=== PATIENT | female | born 1995 | race American Indian/Alaskan Native ===

== ENCOUNTER 2017-04-16 21:01 | Outpatient (CLI) | payer MEDICAID ==
[2017-04-16 21:29] VITALS: BP 110/57
== END 2017-04-16 23:12 | disposition home or self-care (01) ==
LOC: TRG 21:01
PROVIDERS: ATTEND Obstetrics & Gynecology
DX: O62.9 Abnormality of forces of labor, unspecified (principal); O42.92 Full-term premature rupture of membranes, unspecified as to length of time between rupture and onset of labor; Z3A.39 39 weeks gestation of pregnancy
CPT/HCPCS: 59025

== ENCOUNTER 2017-04-22 01:22 | Outpatient (CLI) | payer MEDICAID ==
[2017-04-22 01:34] VITALS: BP 123/63
== END 2017-04-22 02:23 | disposition home or self-care (01) ==
LOC: TRG 01:22
PROVIDERS: ATTEND Obstetrics & Gynecology
DX: O62.9 Abnormality of forces of labor, unspecified (principal); O48.0 Post-term pregnancy; Z3A.40 40 weeks gestation of pregnancy
CPT/HCPCS: 59025

== ENCOUNTER 2017-04-23 05:59 | Inpatient (IN) | payer MEDICAID ==
[2017-04-23] MEDS ORDERED: POLYCILLIN/NS 2 GM/100 ML 2 GM/100 ML BAG IV ONE (08:14)
[2017-04-23] MEDS ORDERED: BRETHINE SUB-Q PRN (08:14)
[2017-04-23] MEDS ORDERED: ZOFRAN IV PRN ×2 (08:14→18:37)
[2017-04-23] MEDS ORDERED: NARCAN 0.4 MG/1 ML IV PRN (08:14)
[2017-04-23] MEDS ORDERED: STADOL IV PRN (08:14)
[2017-04-23] MEDS ORDERED: SUBLIMAZE IV PRN (08:14)
[2017-04-23] MEDS ORDERED: ePHEDrine SULFATE IV PRN ×2 (08:14→09:55)
[2017-04-23] MEDS ORDERED: BRETHINE IVP PRN (08:14)
[2017-04-23] MEDS ORDERED: MINERAL OIL PO PRN (08:14)
[2017-04-23] MEDS ORDERED: XYLOCAINE 2% INFILTRATI ONE ×2 (08:14→19:19)
[2017-04-23] MEDS ORDERED: LACTATED RINGERS 1,000 ML IV ONE (08:30)
[2017-04-23 08:46] LABS: Hematocrit 33.3 % (30.3-42.9); Hemoglobin 11.3 gm/dl (10.1-14.3); Mean Corpuscular HGB Conc 34 % (30-34); Mean Corpuscular Hemoglobin 29 pg (28-32); Mean Corpuscular Volume 86 fl (79-97); Platelet Count 210 K/mm3 (140-440); Red Blood Count 3.89 M/mm3 (3.65-5.03); Red Cell Distribution Width 14.6 % (13.2-15.2); White Blood Count 9.3 K/mm3 (4.5-11.0)
[2017-04-23] MEDS ORDERED: Fluarix Quad 2017-2018(36 MOS+ IM ONE (08:56)
[2017-04-23] MEDS ORDERED: PITOCin/NS 20 UNIT/1000ML DRIP 20 UNITS/1,000 ML BAG IV SCH ×2 (09:00→18:37)
[2017-04-23] MEDS ORDERED: LACTATED RINGERS 1,000 ML IV SCH (09:00)
[2017-04-23] MEDS ORDERED: NARCAN 2 MG/2 ML IV PRN (09:55)
--- NOTE | 2017-04-23 09:55 | Anesthesia Consultation ---
Anesthesia Consult and Med Hx Date of service: 04/23/17 - Airway Anesthetic Teeth Evaluation: Good ROM Head & Neck: Adequate Mental/Hyoid Distance: Adequate Mallampati Class: Class II Intubation Access Assessment: Good - Pulmonary Exam CTA: Yes - Cardiac Exam Cardiac Exam: No Murmur - Pre-Operative Health Status ASA Pre-Surgery Classification: ASA2 Proposed Anesthetic Plan: Epidural - Pulmonary Hx Asthma: Yes (LAST ATTACK DURING CHILDHOOD; USE INHALER) COPD: No Hx Pneumonia: No - Cardiovascular System Hx Hypertension: No - Central Nervous System Hx Seizures: No Hx Psychiatric Problems: No - Endocrine Hx Renal Disease: No Hx End Stage Renal Disease: No Hx Hypothyroidism: No Hx Hyperthyroidism: No - Hematic Hx Anemia: No Hx Sickle Cell Disease: No - Other Systems Hx Alcohol Use: No
[2017-04-23] MEDS ORDERED: NS IV ONE (10:00)
[2017-04-23] MEDS ORDERED: FLAGYL IV ONE (10:00)
[2017-04-23] MEDS ORDERED: fentaNYL-BUPIV 2 MCG/ML-0.125% 200 MCG/100 ML BAG EPIDURAL SCH (10:00)
[2017-04-23] MEDS ORDERED: VIAFLEX EMPTY CONTAINER IV ONE (10:00)
[2017-04-23] MEDS ORDERED: POLYCILLIN/NS 1 GM/50 ML 1 GM/50 ML BAG IV SCH (12:16)
[2017-04-23] MEDS: PITOCin/NS 30 UNIT/500ML 30 UNITS/500 ML BAG IV SCH ×2 (14:32→15:04)
--- NOTE | 2017-04-23 15:09 | History and Physical Report ---
History of Present Illness Date of examination: 04/23/17 Date of admission: 04/23/17 08:19 Chief complaint: contractions History of present illness: Pt is a 21 year old -[place] female ALEJANDRA 04/20/17t 40w3d who presents with regular contractions with cervical change from 3 to 4.5 cm while in observation. Pt has had insufficient care since 21 weeks complicated by asthma, h/o 20 wk loss ([facility] reports that pt took an medication she bought online), gonorrhea treated with negative test of cure on 02/28/17, trichomonas treated with positive test of cure, no visits after 32 weeks, h/o incarceration this , IUGR at 8%ile with MFM comanagment. Pt has been non-compliant throughout the . She is GBS unknown because she did not present after 32 weeks. 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, trichomonas Family/Genetic History: none Social history: no significant social history - Obstetrical History Expected Date of Delivery: 04/20/17 Actual Gestation: 40 Week(s) 3 Day(s) : 3 Para: 1 Hx # Term Pregnancies: 1 Number of Pregnancies: 0 Spontaneous Abortions: 0 Induced : 1 Number of Living Children: 1 Medications and Allergies Allergies Allergy/AdvReac Type Severity Reaction Status Date / Time No Known Allergies Allergy Verified 04/23/17 08:22 Home Medications Medication Instructions Recorded Confirmed Last Taken Type No Known Home Medications [No 05/11/14 04/22/17 Unknown History Reported Home Medications] Active Meds: Active Medications Butorphanol Tartrate (Stadol) 2 mg IV Q2H PRN PRN Reason: Pain , Severe (7-10) Ephedrine Sulfate (Ephedrine Sulfate) 10 mg IV Q2M PRN PRN Reason: Hypotension Ephedrine Sulfate (Ephedrine Sulfate) 10 mg IV Q2M PRN PRN Reason: Hypotension Fentanyl (Sublimaze) 100 mcg IV Q2H PRN PRN Reason: Labor Pain Last Admin: 04/23/17 08:45 Dose: 100 mcg Ampicillin Sodium (Polycillin/Ns 1 Gm/50 Ml) 1 gm in 50 mls @ 100 mls/hr IV Q4HR MIKEY PRN Reason: Protocol Last Admin: 04/23/17 12:30 Dose: 100 mls/hr Lactated Ringer's (Lactated Ringers) 1,000 mls @ 125 mls/hr IV DIRECT MIKEY Last Admin: 04/23/17 10:36 Dose: 125 mls/hr Oxytocin/Sodium Chloride (Pitocin/Ns 20 Unit/1000ml Drip) 20 units in 1,000 mls @ 125 mls/hr IV DIRECT MIKEY Oxytocin/Sodium Chloride (Pitocin/Ns 30 Unit/500ml) 30 units in 500 mls @ 2 mls /hr IV TITR MIKEY PRN Reason: Protocol Last Admin: 04/23/17 14:32 Dose: 4 ml/hr, 4 mls/hr Fentanyl/Bupivacaine/Sodium Chlor (Fentanyl-Bupiv 2 Mcg/Ml-0.125%) 200 mcg in 100 mls @ 12 mls/hr EPIDURAL TITR MIKEY PRN Reason: Protocol Last Admin: 04/23/17 10:31 Dose: 12 mls/hr Mineral Oil (Mineral Oil) 30 ml PO QHS PRN PRN Reason: Constipation Naloxone HCl (Narcan 0.4 Mg/1 Ml) 0.1 mg IV Q2MIN PRN PRN Reason: Res Rate </= 8 or 02 SAT < 92% Naloxone HCl (Narcan 2 Mg/2 Ml) 0.2 mg IV Q5M PRN PRN Reason: Respiratory sedation Ondansetron HCl (Zofran) 4 mg IV Q8H PRN PRN Reason: Nausea And Vomiting Terbutaline Sulfate (Brethine) 0.25 mg SUB-Q ONCE PRN PRN Reason: Hyperstimulation/Hypertonicity Terbutaline Sulfate (Brethine) 0.25 mg IVP ONCE PRN PRN Reason: Hyperstimulation/Hypertonicity Review of Systems All systems: negative - Vital Signs Vital signs: Vital Signs Pulse BP 60 107/59 04/23/17 06:17 04/23/17 06:17 Temp Pulse Resp BP Pulse Ox 97.9 F 85 18 110/66 100 04/23/17 09:42 04/23/17 15:03 04/23/17 09:42 04/23/17 15:03 04/23/17 15:02 - Physical Exam Breasts: Positive: deferred Cardiovascular: Regular rate Lungs: Positive: Clear to auscultation Abdomen: Positive: soft ( gravid ) Genitourinary (Female): Positive: normal external genitalia Uterus: Positive: enlarged (gravid ) Extremities: Positive: normal - Obstetrical FHR: category 2 Uterine Contraction Monitor Mode: External Cervical Dilatation: 8 Cervical Effacement Percentage: 100 station: -1 Uterine Contraction Pattern: Irregular Uterine Tone Measurement Phase: Resting Uterine Contraction Intensity: Mild Results Result Diagrams: 04/23/17 08:30 All other labs normal. Assessment and Plan A: IUP at 40w3d Active labor IUGR Trichomonas with positive Insufficient care GBS unknown P: Admit to labor and delivery. GBS prophylaxis. Flagyl 2g IV. Routine intrapartum care.
--- NOTE | 2017-04-23 15:59 | Procedure Note ---
OB Delivery Note - Delivery Date of Delivery: 04/23/17 Surgeon: ROSA ELENA WILLSON Estimated blood loss: other (400 mL) - Vaginal Delivery presentation: vertex Delivery position: OA Intrapartum events: mult.variable deceleratio Delivery induction: none Delivery augmentation: rupture of membranes, pitocin Delivery monitor: external FHT, external uterine Route of delivery: Delivery placenta: spontaneous Episiotomy: none Delivery laceration: other (midline periurethral, right periurethral- hemostatic ) Delivery repair: vicryl Anesthesia: epidural - Infant A at 1 minute: 9 at 5 minutes: 9 Infant Gender: Female (2632g (5lb 13 oz) @ 1540 pm)
[2017-04-23] MEDS ORDERED: PHENERGAN PO PRN (18:37)
[2017-04-23] MEDS ORDERED: TUCKS PAD TP PRN (18:37)
[2017-04-23] MEDS ORDERED: MILK OF MAGNESIA PO PRN (18:37)
[2017-04-23] MEDS ORDERED: PHENERGAN PR PRN (18:37)
[2017-04-23] MEDS ORDERED: SODIUM CHLORIDE FLUSH SYRINGE 10 ML IV NR (18:37)
[2017-04-23] MEDS ORDERED: DULCOLAX PR PRN (18:37)
[2017-04-23] MEDS ORDERED: BENADRYL PO PRN (18:37)
[2017-04-23] MEDS ORDERED: TYLENOL PO PRN (18:37)
[2017-04-23] MEDS ORDERED: NORCO 5/325 PO PRN (18:37)
[2017-04-23] MEDS ORDERED: LANSINOH TP PRN (18:37)
[2017-04-23] MEDS ORDERED: PITOCin/NS 20 UNIT/1000ML DRIP 20,000 MILLIUNITS/1,000 ML BAG IV ONE (19:19)
[2017-04-23] MEDS: MOTRIN PO SCH (21:26)
[2017-04-23] MEDS ORDERED: FEOSOL PO SCH (22:00)
[2017-04-24 05:31] LABS: Hematocrit 30.1 % (30.3-42.9); Hemoglobin 10.1 gm/dl (10.1-14.3)
[2017-04-24] MEDS ORDERED: BOOSTRIX IM ONE (06:00)
[2017-04-24] MEDS: MOTRIN PO SCH ×3 (07:49→18:13)
[2017-04-24] MEDS ORDERED: MOTRIN PO PRN (09:11)
--- NOTE | 2017-04-24 10:50 | Progress Note ---
Assessment and Plan A: PPD#1 s/p at term P: Routine care. Discharge this evening if baby is able to go home today. If not , hold discharge until tomorrow. Subjective - Subjective Date of service: 04/24/17 Principal diagnosis: s/p at term, IUGR Interval history: No overnight events. Patient reports: appetite normal, voiding normally, pain well controlled, ambulating normally [place]: doing well Objective - Vital Signs Latest vital signs: Vital Signs Temp Pulse Resp Resp BP BP Pulse Ox 04/24/17 07:53 18 04/24/17 04:00 97.8 F 86 20 118/55 04/24/17 01:58 98.1 F 72 20 108/46 04/23/17 22:26 16 04/23/17 21:26 16 04/23/17 18:30 97.9 F 65 18 109/62 100 04/23/17 17:33 64 101/56 04/23/17 17:30 97.8 F 94 H 18 114/70 04/23/17 17:03 73 116/64 04/23/17 16:33 83 105/66 04/23/17 16:18 96 H 132/60 04/23/17 16:00 78 105/61 04/23/17 15:48 84 122/71 04/23/17 15:34 64 107/58 04/23/17 15:32 56 L 100 04/23/17 15:27 84 100 04/23/17 15:22 75 100 04/23/17 15:19 74 117/57 04/23/17 15:17 59 L 100 04/23/17 15:12 58 L 100 04/23/17 15:07 76 100 04/23/17 15:03 85 110/66 04/23/17 15:02 67 100 04/23/17 14:57 77 100 04/23/17 14:52 58 L 100 04/23/17 14:48 77 115/62 04/23/17 14:47 75 98 04/23/17 14:42 75 99 04/23/17 14:37 76 100 04/23/17 14:32 86 111/62 100 04/23/17 14:27 63 100 04/23/17 14:22 70 99 04/23/17 14:18 66 107/63 04/23/17 14:17 70 100 12/23/17 14:12 65 100 04/23/17 14:07 85 100 04/23/17 14:03 71 104/63 04/23/17 14:02 90 100 04/23/17 13:57 71 100 04/23/17 13:52 82 100 04/23/17 13:49 75 103/50 04/23/17 13:47 70 100 04/23/17 13:42 64 100 04/23/17 13:37 74 100 04/23/17 13:33 71 107/59 04/23/17 13:32 69 100 04/23/17 13:27 73 100 04/23/17 13:22 80 100 04/23/17 13:17 78 107/60 100 04/23/17 13:12 73 100 04/23/17 13:07 80 100 04/23/17 13:02 72 103/61 99 04/23/17 12:57 97 H 99 04/23/17 12:52 86 99 04/23/17 12:48 75 102/56 04/23/17 12:47 79 100 04/23/17 12:42 60 100 04/23/17 12:37 71 99 04/23/17 12:33 88 110/64 04/23/17 12:32 87 99 04/23/17 12:27 77 99 04/23/17 12:22 68 100 04/23/17 12:17 82 100 04/23/17 12:12 75 100 04/23/17 12:07 68 100 04/23/17 12:02 65 99 04/23/17 11:57 65 99 04/23/17 11:52 70 100 04/23/17 11:47 64 100 04/23/17 11:42 64 99 04/23/17 11:37 72 99 04/23/17 11:32 65 100 04/23/17 11:27 66 100 04/23/17 11:22 82 100 04/23/17 11:17 77 132/116 100 04/23/17 11:12 80 100 04/23/17 11:07 63 99 04/23/17 11:02 72 100 04/23/17 11:01 72 112/66 04/23/17 10:57 73 100 04/23/17 10:56 55 L 114/65 04/23/17 10:52 78 98 Intake and Output 04/23/17 04/24/17 04/24/17 22:59 06:59 14:59 Intake Total 242.133 240 120 Output Total 500 Balance -257.867 240 120 Intake: IV 2.133 PITOCin/NS 30 UNIT/500ML 2.133 30 units In 500 ml @ 2 mls/hr IV TITR MIKEY Rx#: [id number] Oral 240 240 120 Output: Urine 500 Uretheral ([place]) 500 Other: Total, Intake Amount 240 240 120 # Voids Void 1 1 1 Estimated Blood Loss 400 - Exam Breasts: Present: deferred Cardiovascular: Present: Regular rate Lungs: Present: Clear to auscultation Abdomen: Present: soft Uterus: Present: fundal height at umbilicus Extremities: Present: normal - Labs Labs: Abnormal lab results 04/24/17 Range/Units 05:18 Hct 30.1 L (30.3-42.9) %
--- NOTE | 2017-04-24 10:53 | Discharge Summary ---
Providers - Providers Date of Admission: 04/23/17 08:19 Date of discharge: 04/24/17 Attending physician: ROSA ELENA WILLSON 04/23/17 18:37 Consult to [employer] Consulting Services [CONS] Routine Reason For Exam: assistance with , SNS Primary care physician: ROSA ELENA WILLSON Hospitalization Reason for admission: active labor Delivery: Procedure details: Please see delivery note. Episiotomy: none Laceration: other (midline periurethral, right periurethral ) Other procedures: none complications: none Discharge diagnosis: IUP at term delivered baby: female Hospital course: Pt underwent which she tolerated well. Her course was uncomplicated and she met discharge criteria on PPD#1. She will follow up in 4 wks with Liset Queen. Condition at discharge: Stable Disposition: DC-01 TO HOME OR SELFCARE - Discharge Diagnoses (1) IUGR (intrauterine growth restriction) Status: Acute (2) Insufficient care Status: Acute Qualifiers: Trimester: third trimester Qualified Code(s): O09.33 - Supervision of with insufficient care, third trimester (3) Term of female Status: Acute Plan - Discharge Medications Prescriptions: Ibuprofen [Motrin 800 MG tab] 800 mg PO Q8HR PRN #30 tablet PRN Reason: Pain - Provider Discharge Summary Activity: routine, no sex for 6 weeks, no heavy lifting 4 weeks, no strenuous exercise Diet: routine Instructions: routine Additional instructions: [] Smoking cessation referral if applicable(refer to patient education folder for contact #) [] Refer to [facility]'s [facility] Booklet Call your doctor immediately for: * Fever > 100.5 * Heavy vaginal bleeding ( >1 pad per hour) * Severe persistent headache * Shortness of breath * Reddened, hot, painful area to leg or breast * Drainage or odor from incision. * Keep incision clean and dry at all times and follow doctor's instructions regarding bathing/showering - Follow up plan Follow up: LISET QUEEN CNM [Advanced Practice Nurse] - 05/23/17 (Please call to schedule appt )
[2017-04-24] MEDS ORDERED: M-M-R II VACCINE SUB-Q ONE (16:00)
[2017-04-24 19:35] VITALS: BP 113/67
== END 2017-04-24 19:45 | disposition home or self-care (01) | DRG 774 ==
LOC: TRG 05:59 → LD 08:19 → OB 18:08
PROVIDERS: ADMIT Obstetrics & Gynecology; ATTEND Obstetrics & Gynecology
PROC: 10E0XZZ Delivery of Products of Conception, External Approach (ICD-10-PCS; principal; 2017-04-23)
PROC: 0UQMXZZ Repair Vulva, External Approach (ICD-10-PCS; 2017-04-23)
PROC: 10907ZC Drainage of Amniotic Fluid, Therapeutic from Products of Conception, Via Natural or Artificial Opening (ICD-10-PCS; 2017-04-23)
PROC: 3E0R3BZ Introduction of Anesthetic Agent into Spinal Canal, Percutaneous Approach (ICD-10-PCS; 2017-04-23)
PROC: 00HU33Z Insertion of Infusion Device into Spinal Canal, Percutaneous Approach (ICD-10-PCS; 2017-04-23)
PROC: 3E0234Z Introduction of Serum, Toxoid and Vaccine into Muscle, Percutaneous Approach (ICD-10-PCS; 2017-04-24)
DX: O99.52 Diseases of the respiratory system complicating childbirth (principal); O98 Maternal infectious and parasitic diseases classifiable elsewhere but complicating pregnancy, childbirth and the puerperium; Z23 Encounter for immunization; O76 Abnormality in fetal heart rate and rhythm complicating labor and delivery; Z3A.40 40 weeks gestation of pregnancy; O75.89 Other specified complications of labor and delivery; Z37.0 Single live birth; J45.909 Unspecified asthma, uncomplicated; O71.82 Other specified trauma to perineum and vulva; A59.01 Trichomonal vulvovaginitis; O36.5930 Maternal care for other known or suspected poor fetal growth, third trimester, not applicable or unspecified
CPT/HCPCS: 36415; 85014; 85018; 85027; 86592; 86850; 86900; 86901; 88307; 90471; 90686; 90715; J0290; J2590; J3010; J7120